=== PATIENT | male | born 1965 | race Caucasian/White ===

== ENCOUNTER 2023-01-03 05:28 | Emergency (ER) | payer OTHER ==
[2023-01-03 06:45] LABS: BASOPHILS PERCENT AUTO 0.9 % (0.1-1.2); EOSINOPHILS ABSOLUTE AUTO 0.08 K/mm3 (0.04-0.54); EOSINOPHILS PERCENT AUTO 0.7 (0.8-7.0); HEMATOCRIT 37.6 % (40.1-51.0); HEMOGLOBIN 12.2 gm/dl (13.7-17.5); IMMATURE GRAN ABSOLUTE AUTO 0.05 K/mm3 (0.00-0.10); IMMATURE GRAN PERCENT AUTO 0.4 % (<=1.0); LYMPHOCYTES ABSOLUTE AUTO 1.48 K/mm3 (1.32-3.57); MEAN CORPUSCULAR HEMOGLOBIN 26.6 pg (25.7-32.2); MEAN CORPUSCULAR HGB CONC 32.4 g/dl (32.2-35.5); MEAN CORPUSCULAR VOLUME 82.1 fl (79.0-92.2); MEAN PLATELET VOLUME 10.1 fl (9.4-12.3); MONOCYTES ABSOLUTE AUTO 1.22 K/mm3 (0.30-0.82); MONOCYTES PERCENT AUTO 10.7 % (5.3-12.2); NEUTROPHILS ABSOLUTE AUTO 8.47 K/mm3 (1.78-5.38); NEUTROPHILS PERCENT AUTO 74.3 % (34.0-67.9); PLATELET COUNT,PLT 468 K/mm3 (163-337); RED BLOOD CELL COUNT 4.58 M/mm3 (4.63-6.08)
[2023-01-03 07:06] LABS: A/G RATIO 0.6 (1-2); ALBUMIN 2.9 g/dl (3.4-5.0); ANION GAP 15.2 (5-15); BILIRUBIN TOTAL 0.3 mg/dL (0.2-1.0); BUN/CREATININE RATIO 18.3 (14-18); CALCIUM 9.5 mg/dL (8.5-10.1); CREATININE 1.2 mg/dL (0.7-1.3); EST CRCL DRUG DOSING (CG) 75.44 mL/min; POTASSIUM,K 4.2 mEq/L (3.5-5.1); URIC ACID 2.8 mg/dL (3.5-7.2)
[2023-01-03 07:27] LABS: C-REACTIVE PROTEIN 18.3 mg/dL (<1.0)
[2023-01-03 08:11] LABS: SLIDE REVIEW ABNORMAL SMEAR
[2023-01-03 08:13] LABS: CORONAVIRUS COVID-19 NAA NEGATIVE (NEGATIVE); INFLUENZA A NAA NEGATIVE (NEGATIVE); RESPIRATORY SYNCYTIAL VIR NAA NEGATIVE (NEGATIVE)
[2023-01-03] MEDS ORDERED: Acetaminophen/HYDROcodone 325-10 MG Tab PO ONE (09:35)
== END 2023-01-03 10:13 | disposition home or self-care (01) ==
LOC: JD.ED 05:28
DX: M25.561 Pain in right knee (principal); M25.562 Pain in left knee; Z20.822 Contact with and (suspected) exposure to COVID-19
CPT/HCPCS: 0241U; 36415; 73562; 80053; 84550; 85025; 85652; 86140; 99283; A9270